=== PATIENT | female | born 1995 | race Asian ===

== ENCOUNTER 2016-09-25 07:30 | Outpatient (CLI) | payer OTHER | END 2016-09-25 23:59 | LOC: LAB.WCP 07:30 | PROVIDERS: ATTEND Family Medicine | DX: N39.0 Urinary tract infection, site not specified (principal) | CPT/HCPCS: 87077; 87086 ==

== ENCOUNTER 2017-06-03 08:00 | Outpatient (CLI) | payer OTHER ==
[2017-06-03 19:31] LABS: ALT ALANINE AMINOTRANSFERASE 30 IU/L (10-60); AST ASPARTATE AMINOTRANSFERASE 39 IU/L (10-42)
[2017-06-03 19:36] LABS: CHOL/HDL RATIO 3.6 (<4.4); CHOLESTEROL 198 mg/dL; HDL CHOLESTEROL 55 mg/dL; LDL CHOLESTEROL,CALCULATED 120 mg/dL; LDL/HDL RATIO 2.2 (<4.4); VLDL CHOLESTEROL 23 mg/dL
[2017-06-03 19:43] LABS: HCG,QUALITATIVE BLOOD NEGATIVE
== END 2017-06-03 08:01 | disposition home or self-care (01) ==
LOC: LAB.WCP 08:00
PROVIDERS: ATTEND Physician Assistant Medical
DX: L70.0 Acne vulgaris (principal); Z79.899 Other long term (current) drug therapy
CPT/HCPCS: 36415; 80061; 83721; 84450; 84460; 84703

== ENCOUNTER 2017-07-05 08:00 | Outpatient (CLI) | payer OTHER ==
[2017-07-05 19:28] LABS: ALT ALANINE AMINOTRANSFERASE 13 IU/L (10-60); AST ASPARTATE AMINOTRANSFERASE 23 IU/L (10-42); CHOL/HDL RATIO 5.1 (<4.4); CHOLESTEROL 240 mg/dL; HDL CHOLESTEROL 47 mg/dL; LDL CHOLESTEROL,CALCULATED 152 mg/dL; LDL/HDL RATIO 3.2 (<4.4); VLDL CHOLESTEROL 41 mg/dL
[2017-07-05 19:54] LABS: HCG,QUALITATIVE BLOOD NEGATIVE
== END 2017-07-05 08:01 | disposition home or self-care (01) ==
LOC: LAB.WCP 08:00
PROVIDERS: ATTEND Physician Assistant Medical
DX: L70.0 Acne vulgaris (principal); Z79.899 Other long term (current) drug therapy
CPT/HCPCS: 36415; 80061; 83721; 84450; 84460; 84703

== ENCOUNTER 2017-08-03 13:12 | Outpatient (CLI) | payer OTHER ==
[2017-08-03 18:58] LABS: ALT ALANINE AMINOTRANSFERASE 12 IU/L (10-60); AST ASPARTATE AMINOTRANSFERASE 22 IU/L (10-42); CHOL/HDL RATIO 5.6 (<4.4); CHOLESTEROL 245 mg/dL; HCG,QUALITATIVE BLOOD NEGATIVE; HDL CHOLESTEROL 44 mg/dL; LDL CHOLESTEROL,CALCULATED 158 mg/dL; LDL/HDL RATIO 3.6 (<4.4); VLDL CHOLESTEROL 43 mg/dL
== END 2017-08-03 13:13 | disposition home or self-care (01) ==
LOC: LAB.WCP 13:12
PROVIDERS: ATTEND Physician Assistant Medical
DX: L70.0 Acne vulgaris (principal); Z79.899 Other long term (current) drug therapy
CPT/HCPCS: 36415; 80061; 83721; 84450; 84460; 84703

== ENCOUNTER 2017-08-31 08:00 | Outpatient (CLI) | payer OTHER ==
[2017-08-31 19:36] LABS: ALT ALANINE AMINOTRANSFERASE 13 IU/L (10-60); AST ASPARTATE AMINOTRANSFERASE 23 IU/L (10-42); CHOL/HDL RATIO 4.9 (<4.4); CHOLESTEROL 217 mg/dL; HDL CHOLESTEROL 44 mg/dL; LDL CHOLESTEROL,CALCULATED 143 mg/dL; LDL/HDL RATIO 3.3 (<4.4); VLDL CHOLESTEROL 30 mg/dL
[2017-08-31 19:45] LABS: HCG,QUALITATIVE BLOOD NEGATIVE
== END 2017-08-31 08:01 ==
LOC: LAB.WCP 08:00
PROVIDERS: ATTEND Physician Assistant Medical
DX: L70.0 Acne vulgaris (principal); Z79.899 Other long term (current) drug therapy
CPT/HCPCS: 36415; 80061; 83721; 84450; 84460; 84703

== ENCOUNTER 2017-09-28 08:00 | Outpatient (CLI) | payer OTHER ==
[2017-09-28 13:48] LABS: ALT ALANINE AMINOTRANSFERASE 14 IU/L (10-60); AST ASPARTATE AMINOTRANSFERASE 21 IU/L (10-42); CHOL/HDL RATIO 4.7 (<4.4); CHOLESTEROL 227 mg/dL; HDL CHOLESTEROL 48 mg/dL; LDL CHOLESTEROL,CALCULATED 133 mg/dL; LDL/HDL RATIO 2.8 (<4.4); VLDL CHOLESTEROL 46 mg/dL
[2017-09-28 13:50] LABS: HCG,QUALITATIVE BLOOD NEGATIVE
== END 2017-09-28 08:01 | disposition home or self-care (01) ==
LOC: LAB.WCP 08:00
PROVIDERS: ATTEND Physician Assistant Medical
DX: L70.0 Acne vulgaris (principal); Z79.899 Other long term (current) drug therapy
CPT/HCPCS: 36415; 80061; 83721; 84450; 84460; 84703

== ENCOUNTER 2017-10-06 08:00 | Outpatient (CLI) | payer OTHER ==
[2017-10-06 12:50] LABS: HCG,QUALITATIVE BLOOD NEGATIVE
[2017-10-06 13:01] LABS: ALT ALANINE AMINOTRANSFERASE 19 IU/L (10-60); AST ASPARTATE AMINOTRANSFERASE 29 IU/L (10-42); CHOL/HDL RATIO 4.8 (<4.4); CHOLESTEROL 218 mg/dL; HDL CHOLESTEROL 45 mg/dL; LDL CHOLESTEROL,CALCULATED 141 mg/dL; LDL/HDL RATIO 3.1 (<4.4); VLDL CHOLESTEROL 32 mg/dL
== END 2017-10-06 08:01 | disposition home or self-care (01) ==
LOC: LAB.WCP 08:00
PROVIDERS: ATTEND Physician Assistant Medical
DX: L70.0 Acne vulgaris (principal); Z79.899 Other long term (current) drug therapy
CPT/HCPCS: 36415; 80061; 83721; 84450; 84460; 84703

== ENCOUNTER 2017-11-01 11:58 | Outpatient (CLI) | payer OTHER ==
[2017-11-01 19:45] LABS: ALT ALANINE AMINOTRANSFERASE 26 IU/L (10-60); AST ASPARTATE AMINOTRANSFERASE 38 IU/L (10-42); CHOL/HDL RATIO 5.5 (<4.4); CHOLESTEROL 246 mg/dL; HDL CHOLESTEROL 45 mg/dL; LDL CHOLESTEROL,CALCULATED 151 mg/dL; LDL/HDL RATIO 3.4 (<4.4); VLDL CHOLESTEROL 50 mg/dL
[2017-11-01 19:48] LABS: HCG,QUALITATIVE BLOOD NEGATIVE
== END 2017-11-01 11:59 | disposition home or self-care (01) ==
LOC: LAB.WCP 11:58
PROVIDERS: ATTEND Physician Assistant Medical
DX: L70.0 Acne vulgaris (principal); Z79.899 Other long term (current) drug therapy
CPT/HCPCS: 36415; 80061; 83721; 84450; 84460; 84703

== ENCOUNTER 2017-12-03 08:00 | Outpatient (CLI) | payer OTHER ==
[2017-12-03 12:51] LABS: ALT ALANINE AMINOTRANSFERASE 28 IU/L (10-60); AST ASPARTATE AMINOTRANSFERASE 44 IU/L (10-42)
[2017-12-03 12:57] LABS: CHOL/HDL RATIO 4.7 (<4.4); CHOLESTEROL 197 mg/dL; HDL CHOLESTEROL 42 mg/dL; LDL CHOLESTEROL,CALCULATED 123 mg/dL; LDL/HDL RATIO 2.9 (<4.4); VLDL CHOLESTEROL 32 mg/dL
[2017-12-03 13:31] LABS: HCG,QUALITATIVE BLOOD NEGATIVE
== END 2017-12-03 08:01 | disposition home or self-care (01) ==
LOC: LAB.WCP 08:00
PROVIDERS: ATTEND Physician Assistant Medical
DX: L70.0 Acne vulgaris (principal); Z79.899 Other long term (current) drug therapy
CPT/HCPCS: 36415; 80061; 83721; 84450; 84460; 84703

== ENCOUNTER 2017-12-31 13:00 | Outpatient (CLI) | payer OTHER ==
[2017-12-31 18:44] LABS: ALT ALANINE AMINOTRANSFERASE 18 IU/L (10-60); AST ASPARTATE AMINOTRANSFERASE 26 IU/L (10-42); CHOL/HDL RATIO 4.9 (<4.4); CHOLESTEROL 222 mg/dL; HDL CHOLESTEROL 45 mg/dL; LDL CHOLESTEROL,CALCULATED 147 mg/dL; LDL/HDL RATIO 3.3 (<4.4); VLDL CHOLESTEROL 30 mg/dL
[2017-12-31 18:46] LABS: HCG,QUALITATIVE BLOOD NEGATIVE
== END 2017-12-31 13:01 | disposition home or self-care (01) ==
LOC: LAB.WCP 13:00
PROVIDERS: ATTEND Physician Assistant Medical
DX: L70.0 Acne vulgaris (principal); Z79.899 Other long term (current) drug therapy
CPT/HCPCS: 36415; 80061; 83721; 84450; 84460; 84703

== ENCOUNTER 2018-01-25 09:35 | Outpatient (CLI) | payer OTHER ==
[2018-01-25 15:21] LABS: ALT ALANINE AMINOTRANSFERASE 15 IU/L (10-60); AST ASPARTATE AMINOTRANSFERASE 22 IU/L (10-42); CHOL/HDL RATIO 5.6 (<4.4); CHOLESTEROL 245 mg/dL; HDL CHOLESTEROL 44 mg/dL; LDL CHOLESTEROL,CALCULATED 164 mg/dL; LDL/HDL RATIO 3.7 (<4.4); VLDL CHOLESTEROL 37 mg/dL
[2018-01-25 16:10] LABS: HCG,QUALITATIVE BLOOD NEGATIVE
== END 2018-01-25 09:36 ==
LOC: LAB.WCP 09:35
PROVIDERS: ATTEND Physician Assistant Medical
DX: L70.0 Acne vulgaris (principal); Z79.899 Other long term (current) drug therapy
CPT/HCPCS: 36415; 80061; 83721; 84450; 84460; 84703

== ENCOUNTER 2018-04-07 12:19 | Outpatient (CLI) | payer OTHER | END 2018-04-07 12:20 | disposition home or self-care (01) | LOC: LAB 12:19 | PROVIDERS: ATTEND Nurse Practitioner | DX: R00.0 Tachycardia, unspecified (principal) | CPT/HCPCS: 36415; 85379 ==

== ENCOUNTER 2020-12-07 19:20 | Emergency (ER) | payer OTHER ==
--- NOTE | 2020-12-07 20:25 | ED Physician Documentation ---
History of Present Illness - Stated complaint Stated Complaint: OD-WEED - Chief complaint Chief Complaint: General - History obtained from History obtained from: Patient, Family (significant other) - Additonal information Additional information: 25yF previously healthy 21yF, p/w nbnb n/v and dizziness after taking 1mL of 63% RSO (concentrated marijuana) oil from [facility] for the first time this evening. no other drug or alcohol use. patient has had marijuana before but is not a habitual user. she is able to state her name and responds to commands but is otherwise disoriented. Review of Systems Unable to obtain: Intoxicated PD PAST MEDICAL HISTORY - Present Medications Home Medications: Ambulatory Orders Medication Instructions Recorded Confirmed No Known Home Medications 12/07/20 12/07/20 - Allergies Allergies/Adverse Reactions: Allergies Allergy/AdvReac Type Severity Reaction Status Date / Time No Known Drug Allergies Allergy Verified 12/07/20 19:34 PD ED PE NORMAL - Vitals Vital signs reviewed: Yes - General General: No acute distress, Other (vomitus visible on clothes. disoriented appearing) - HEENT HEENT: Atraumatic, PERRL, EOMI - Neck Neck: Supple, no meningeal sign - Cardiac Cardiac: RRR - Respiratory Respiratory: No respiratory distress - Abdomen Abdomen: Non tender, Non distended - Derm Derm: Normal color, Warm and dry - Extremities Extremities: No deformity - Neuro Neuro: Alert and oriented X 3 - Psych Psych: Normal mood, Normal affect Results - Vitals Vitals: Vital Signs - 24 hr 12/07/20 12/07/20 12/07/20 19:34 21:02 23:00 Temperature 36.6 C 36.6 C Heart Rate 110 H 120 H 109 H Respiratory 19 17 16 Rate Blood Pressure 112/64 129/75 117/70 O2 Saturation 100 100 99 Oxygen O2 Source Room air PD MEDICAL DECISION MAKING - ED course ED course: 25yF presents s/p isolated MJ overdose. vital signs normal on the monitor. patient in NAD. will let her rest and then reevaluate. Departure - Departure Disposition: 01 Home, Self Care Clinical Impression: Accidental marijuana overdose Condition: Good Instructions: ED Overdose Accidental Comments: You were seen in the emergency department for accidental overdose of marijuana. Please follow-up with your primary doctor. Avoid taking high doses of marijuana in future. Return to the emergency department if you have any new or worsening symptoms or other concerns.
[2020-12-07 23:12] VITALS: BP 117/70
== END 2020-12-07 23:30 | disposition home or self-care (01) ==
LOC: ED 19:20
DX: T40.7X1A Poisoning by cannabis (derivatives), accidental (unintentional), initial encounter (principal); R41.0 Disorientation, unspecified; R42 Dizziness and giddiness; R11.2 Nausea with vomiting, unspecified
CPT/HCPCS: 99281

== ENCOUNTER 2022-01-26 14:31 | Outpatient (CLI) | payer OTHER | END 2022-01-26 14:32 | disposition home or self-care (01) | LOC: MAC.MOP 14:31 | PROVIDERS: ATTEND Physician Assistant | DX: R00.2 Palpitations (principal) | CPT/HCPCS: 93246 ==

== ENCOUNTER 2022-02-19 16:16 | Outpatient (CLI) | payer OTHER | END 2022-02-19 16:17 | disposition home or self-care (01) | LOC: MAC.MOP 16:16 | PROVIDERS: ATTEND Physician Assistant | DX: I49.1 Atrial premature depolarization (principal) | CPT/HCPCS: 93248 ==

== ENCOUNTER 2022-08-13 11:06 | Outpatient (CLI) | payer OTHER ==
[2022-08-13 18:27] LABS: HCG,QUALITATIVE BLOOD POSITIVE
== END 2022-08-13 11:07 | disposition home or self-care (01) ==
LOC: LAB.N 11:06
PROVIDERS: ATTEND Physician Assistant
DX: N91.2 Amenorrhea, unspecified (principal)
CPT/HCPCS: 36415; 81025; 84703

== ENCOUNTER 2023-03-01 10:49 | Outpatient (CLI) | payer OTHER | END 2023-03-01 10:50 | disposition home or self-care (01) | LOC: LAB.N 10:49 | PROVIDERS: ATTEND Physician Assistant | DX: O03.9 Complete or unspecified spontaneous abortion without complication (principal) | CPT/HCPCS: 36415; 84702 ==

== ENCOUNTER 2023-07-07 10:31 | Outpatient (CLI) | payer OTHER ==
[2023-07-07 12:48] LABS: HCG,QUALITATIVE BLOOD POSITIVE
== END 2023-07-07 10:32 | disposition home or self-care (01) ==
LOC: LAB.N 10:31
PROVIDERS: ATTEND Physician Assistant
DX: Z32.01 Encounter for pregnancy test, result positive (principal)
CPT/HCPCS: 36415; 84703